=== PATIENT | male | born 2000 | race Two or more races ===

== ENCOUNTER 2024-11-09 07:16 | Emergency (ER) | payer MEDICAID, OTHER ==
[~2024-11-09] VITALS: Ht 167.6 cm; Wt 72.1 kg
[2024-11-09] MEDS ORDERED: ACETAMINOPHEN ES 500 MG TABLET ONE (08:02)
[2024-11-09 08:07] LABS: BASOPHILS % (AUTO) 0.4 % (0.0-2.0); CALCIUM, SERUM 8.9 mg/dL (8.5-10.1); CREATININE 1.2 mg/dL (0.6-1.3); EOSINOPHILS # (AUTO) 0.1 K/uL (0.0-0.7); EOSINOPHILS % (AUTO) 1.4 % (0.0-6.0); HEMATOCRIT 48 % (39-51); HEMOGLOBIN 16.5 g/dL (13.5-17.5); LYMPHOCYTES % (AUTO) 22.9 % (20.0-44.0); MEAN CORPUSCULAR HEMOGLOBIN 33 PG (26.0-33.0); MEAN CORPUSCULAR HGB CONC 35 g/dl (31.0-36.0); MEAN CORPUSCULAR VOLUME 95 fL (80-96); MONOCYTES # (AUTO) 0.4 K/uL (0.1-1.30); MONOCYTES % (AUTO) 4.9 % (2.0-12.0); NEUTROPHILS # (AUTO) 6.2 K/uL (1.8-8.9); NEUTROPHILS % (AUTO) 70.4 % (43.0-81.0); PLATELET COUNT (AUTO) 202 K/uL (150-450); POTASSIUM 3.8 mmol/L (3.5-5.1); RED BLOOD CELL COUNT(AUTO) 5.05 MIL/uL (4.5-6.0); RED CELL DISTRIBUTION WIDTH 13.1 % (11.5-15.0); WHITE BLOOD COUNT (AUTO) 8.8 K/uL (4.3-11.0)
[2024-11-09] MEDS: ACETAMINOPHEN ES 500 MG TABLET PO ONE (08:12)
[2024-11-09 10:08] LABS: PHENYTOIN (DILANTIN) 6.2 ug/ml (10.0-20.0)
[2024-11-09] MEDS ORDERED: PHEN100C4 PO (10:48)
[2024-11-09 10:49] VITALS: BP 119/65; TEMP 98.1; O2SAT 98
== END 2024-11-09 11:12 | disposition home or self-care (01) ==
LOC: ER 07:30
DX: R56.9 Unspecified convulsions (principal)
CPT/HCPCS: 36415; 70450-TC; 80048-TC; 80185-TC; 82962-TC; 85025-TC